=== PATIENT | female | born 1975 | race Caucasian/White ===

== ENCOUNTER 2020-08-29 11:47 | Outpatient (CLI) | payer BC | END 2020-08-29 23:59 | disposition home or self-care (01) | LOC: CFH 11:47 → EDSTATUS 12:30 → CFH 23:59 | PROVIDERS: ATTEND Internal Medicine Cardiovascular Disease | DX: Z01.810 Encounter for preprocedural cardiovascular examination (principal); R07.9 Chest pain, unspecified | CPT/HCPCS: 78452; 93017; A9502 ==